=== PATIENT | female | born 1995 | race Caucasian/White ===

== ENCOUNTER 2018-01-22 08:30 | Outpatient (RCR) | payer OTHER | END 2018-03-14 15:07 | disposition home or self-care (01) | PROVIDERS: ATTEND Family Medicine | DX: G56.22 Lesion of ulnar nerve, left upper limb (principal); R20.2 Paresthesia of skin ==

== ENCOUNTER 2018-05-15 20:11 | Emergency (ER) | payer MEDICAID ==
[~2018-05-15] VITALS: Ht 160 cm; Wt 61.2 kg
[2018-05-15] MEDS ORDERED: NS IV 1000 ML 1,000 ML IV SCH (20:45)
[2018-05-15] MEDS ORDERED: ONDANSETRON 4 MG/2 ML (SDV) Z0FRAN IVP ONE (20:45)
[2018-05-15 20:47] LABS: BASOPHILS % (AUTO) 0 % (0-10); EOSINOPHILS # (AUTO) 0.1 10^3/uL (0.0-0.3); EOSINOPHILS % (AUTO) 0 % (0-10); HEMATOCRIT 44 % (35-52); LYMPHOCYTES # (AUTO) 3.3 X 10^3 (1.0-4.0); LYMPHOCYTES % (AUTO) 15 % (12-44); MEAN CORPUSCULAR HEMOGLOBIN 29 PG (25-34); MEAN CORPUSCULAR HGB CONC 34 G/DL (32-36); MEAN CORPUSCULAR VOLUME 86 FL (80-99); MEAN PLATELET VOLUME 11.8 FL (7.4-10.4); MONOCYTES # (AUTO) 1.2 X 10^3 (0.0-1.0); MONOCYTES % (AUTO) 5 % (0-12); NEUTROPHILS # (AUTO) 17.8 X 10^3 (1.8-7.8); NEUTROPHILS % (AUTO) 79 % (42-75); PLATELET COUNT 284 10^3/uL (130-400); RED BLOOD COUNT 5.12 10^6/uL (4.35-5.85); RED CELL DISTRIBUTION WIDTH 13.1 % (10.0-14.5); WHITE BLOOD COUNT 22.4 10^3/uL (4.3-11.0)
[2018-05-15 21:08] LABS: ALANINE AMINOTRANSFERASE 9 U/L (0-55); ALBUMIN 4.9 GM/DL (3.2-4.5); ALKALINE PHOSPHATASE 62 U/L (40-136); AMYLASE 53 U/L (25-125); BILIRUBIN,TOTAL 0.7 MG/DL (0.1-1.0); BUN/CREATININE RATIO 16; CALCIUM 10.2 MG/DL (8.5-10.1); CARBON DIOXIDE 25 MMOL/L (21-32); CHLORIDE 107 MMOL/L (98-107); CREATININE SERUM 0.91 MG/DL (0.60-1.30); GFR ESTIMATED > 60; GLUCOSE 106 MG/DL (70-105); LIPASE 10 U/L (8-78); POTASSIUM 4.1 MMOL/L (3.6-5.0); SODIUM 143 MMOL/L (135-145); TOTAL PROTEIN 8.1 GM/DL (6.4-8.2)
[2018-05-15 21:14] LABS: BAND NEUTROPHILS 1 %; BASOPHILS % (MANUAL) 0 %; EOSINOPHILS % (MANUAL) 1 %; LYMPHOCYTES % (MANUAL) 21 %; MONOCYTES % (MANUAL) 3 %; NEUTROPHILS % (MANUAL) 74 %; RBC MORPH NORMAL
[2018-05-15 21:22] LABS: CLARITY,URINE SLIGHTLY CLOUDY; COLOR,URINE AMBER; GLUCOSE, URINE (UA) NEGATIVE (NEGATIVE); KETONES,URINE 2+ (NEGATIVE); LEUKOCYTE ESTERASE ,URINE 1+ (NEGATIVE); NITRITE,URINE NEGATIVE (NEGATIVE); PH,URINE 5 (5-9); PROTEIN,URINE 2+ (NEGATIVE); UROBILINOGEN,URINE 1 MG/DL (NORMAL)
[2018-05-15 21:36] LABS: BILIRUBIN,URINE 1+ (NEGATIVE)
[2018-05-15 21:37] LABS: BACTERIA,URINE FEW /HPF; SQUAMOUS EPITHELIAL CELL,UR >50 /HPF
[2018-05-15] MEDS ORDERED: RX-ONDANSETRON 4 MG ODT (ZOFRAN) PPK #4 PO STA (22:43)
[2018-05-15] MEDS ORDERED: ONDA4TAB8 SL (22:43)
--- NOTE | 2018-05-15 22:43 | ED Abdominal Pain ---
General Chief Complaint: Abdominal/GI Problems Stated Complaint: VOMITING Nursing Triage Note: Pt c/o vomiting that began around 1400, diarrhea began about 30 mins prior to arrival at ed. Pt denies abdominal pain. Sepsis Screen: No Definite Risk Source of Information: Patient, Family Exam Limitations: No Limitations History of Present Illness Date Seen by Provider: May 15, 2018 Time Seen by Provider: 20:32 Initial Comments Patient is a 22-year-old female who presents to the emergency room with nausea and vomiting that started around 1400 today. She also reports that she's had diarrhea a few episodes this started 30 minutes prior to arrival to the emergency room. She reports abdominal cramping. Timing/Duration: 4-6 Hours Severity/Quality: Cramping Location: Generalized Abdomen Radiation: No Radiation Modifying Factors: Worsens With Defecating Associated Symptoms: Nausea/Vomiting Allergies and Home Medications Allergies Coded Allergies: No Known Drug Allergies (Unverified , 05/15/18) Home Medications Ondansetron 4 Mg Tab.rapdis, 4 MG SL Q4H PRN for NAUSEA/VOMITING-1ST LINE Prescribed by: HALEY TORRES on 05/15/18 8923 Patient Home Medication List Home Medication List Reviewed: Yes Review of Systems Constitutional: see HPI; No chills, No fever Gastrointestinal: Abdominal Pain, Diarrhea, Nausea, Vomiting All Other Systems Reviewed Negative Unless Noted: Yes Past Qwxosev-Lqwyqw-Ljmcxq Hx Past Med/Social Hx: Reviewed Nursing Past Med/Soc Hx Patient Social History Alcohol Use: Denies Use Recreational Drug Use: No 2nd Hand Smoke Exposure: No Recent Foreign Travel: No Contact w/Someone Who Travel: No Recent Infectious Disease Expo: No Recent Hopitalizations: No Physical Abuse: No Sexual Abuse: No Seasonal Allergies Seasonal Allergies: No Past Medical History Surgeries: Yes (vaginal reconstruction) Adenoidectomy, Appendectomy, Tonsillectomy Respiratory: No Cardiac: No Neurological: No Last Menstrual Period: Apr 18, 2018 Female Reproductive Disorders: Ovarian Cyst Gastrointestinal: No Musculoskeletal: No Endocrine: No HEENT: No Cancer: No Psychosocial: No Nursing Suicide Risk Score: 0 Blood Disorders: No Family Medical History Reviewed Nursing Family Hx Physical Exam Vital Signs Vital Signs - First Documented 05/15/18 20:32 Temp 96.9 Pulse 79 Resp 15 B/P (MAP) 94/63 (73) Pulse Ox 98 O2 Delivery Room Air Capillary Refill : Less Than 3 Seconds Height/Weight/BMI Height: 5'3.00" Weight: 135lbs. oz. 61.083160zw; BMI Method:Stated General Appearance: WD/WN, no apparent distress Respiratory: chest non-tender, lungs clear, normal breath sounds, no respiratory distress, no accessory muscle use Cardiovascular: regular rate, rhythm, no edema, no gallop, no JVD, no murmur Gastrointestinal: normal bowel sounds, non tender, soft, no organomegaly, no pulsatile mass Neurologic/Psychiatric: alert, normal mood/affect, oriented x 3 Skin: normal color, warm/dry Progress/Results/Core Measures Results/Orders Lab Results Laboratory Tests Test 05/15/18 20:36 05/15/18 21:17 Range/Units White Blood Count 22.4 H 4.3-11.0 10^3/uL Red Blood Count 5.12 4.35-5.85 10^6/uL Hemoglobin 15.0 11.5-16.0 G/DL Hematocrit 44 35-52 % Mean Corpuscular Volume 86 80-99 FL Mean Corpuscular Hemoglobin 29 25-34 PG Mean Corpuscular Hemoglobin Concent 34 32-36 G/DL Red Cell Distribution Width 13.1 10.0-14.5 % Platelet Count 284 130-400 10^3/uL Mean Platelet Volume 11.8 H 7.4-10.4 FL Neutrophils (%) (Auto) 79 H 42-75 % Lymphocytes (%) (Auto) 15 12-44 % Monocytes (%) (Auto) 5 0-12 % Eosinophils (%) (Auto) 0 0-10 % Basophils (%) (Auto) 0 0-10 % Neutrophils # (Auto) 17.8 H 1.8-7.8 X 10^3 Lymphocytes # (Auto) 3.3 1.0-4.0 X 10^3 Monocytes # (Auto) 1.2 H 0.0-1.0 X 10^3 Eosinophils # (Auto) 0.1 0.0-0.3 10^3/uL Basophils # (Auto) 0.0 0.0-0.1 10^3/uL Neutrophils % (Manual) 74 % Lymphocytes % (Manual) 21 % Monocytes % (Manual) 3 % Eosinophils % (Manual) 1 % Basophils % (Manual) 0 % Band Neutrophils 1 % Blood Morphology Comment NORMAL Sodium Level 143 135-145 MMOL/L Potassium Level 4.1 3.6-5.0 MMOL/L Chloride Level 107 98-107 MMOL/L Carbon Dioxide Level 25 21-32 MMOL/L Anion Gap 11 5-14 MMOL/L Blood Urea Nitrogen 15 7-18 MG/DL Creatinine 0.91 0.60-1.30 MG/DL Estimat Glomerular Filtration Rate > 60 BUN/Creatinine Ratio 16 Glucose Level 106 H 70-105 MG/DL Calcium Level 10.2 H 8.5-10.1 MG/DL Total Bilirubin 0.7 0.1-1.0 MG/DL Aspartate Amino Transf (AST/SGOT) 15 5-34 U/L Alanine Aminotransferase (ALT/SGPT) 9 0-55 U/L Alkaline Phosphatase 62 40-136 U/L Total Protein 8.1 6.4-8.2 GM/DL Albumin 4.9 H 3.2-4.5 GM/DL Amylase Level 53 25-125 U/L Lipase 10 8-78 U/L Serum Test, Qualitative NEGATIVE NEGATIVE Urine Color DEENA H Urine Clarity SLIGHTLY CLOUDY Urine pH 5 5-9 Urine Specific [place] 1.025 H 1.016-1.022 Urine Protein 2+ H NEGATIVE Urine Glucose (UA) NEGATIVE NEGATIVE Urine Ketones 2+ H NEGATIVE Urine Nitrite NEGATIVE NEGATIVE Urine Bilirubin 1+ H NEGATIVE Urine Urobilinogen 1 NORMAL MG/DL Urine Leukocyte Esterase 1+ H NEGATIVE Urine RBC (Auto) 2+ H NEGATIVE Urine RBC 5-10 H /HPF Urine WBC 2-5 /HPF Urine Squamous Epithelial Cells >50 H /HPF Urine Crystals NONE /LPF Urine Bacteria FEW H /HPF Urine Casts NONE /LPF Urine Mucus LARGE H /LPF Urine Culture Indicated NO Micro Results Microbiology 05/15/18 Stool Culture - Preliminary, Resulted No stool pathogens as yet isolated. ... My Orders Orders - HALEY TORRES Ondansetron Injection (Zofran Injectio (05/15/18 20:45) Comprehensive Metabolic Panel (05/15/18 20:41) Lipase (05/15/18 20:41) Amylase (05/15/18 20:41) Ua Culture If Indicated (05/15/18 20:41) Hcg,Qualitative Serum (05/15/18 20:41) Saline Lock/Iv-Start (05/15/18 20:41) Cbc With Automated Diff (05/15/18 20:41) Ns Iv 1000 Ml (Sodium Chloride 0.9%) (05/15/18 20:45) Manual Differential (05/15/18 20:36) Stool Culture (05/15/18 21:34) Ct Abdomen/Pelvis W (05/15/18 21:38) Rx-Ondansetron Po (Rx-Zofran Po) (05/15/18 22:43) Iv Push Insurance Producer Ed (05/15/18 ) Medications Given in ED Vital Signs/I&O 05/15/18 05/15/18 20:32 22:50 Temp 96.9 97.1 Pulse 79 85 Resp 15 18 B/P (MAP) 94/63 (73) 112/66 Pulse Ox 98 100 O2 Delivery Room Air Room Air Blood Pressure Mean: 73 Progress Progress Note : Progress Note I have seen and evaluated the patient. I informed her lab values and CT findings. She agrees with complains of discharge, close follow-up, and return precautions. Diagnostic Imaging Diagonstic Imaging: CT Plain Films/CT/US/NM/MRI: abdomen, pelvis Comments NAME: JENNI NICK [facility] REC#: [id number] PHYSICIAN: HALEY TORRES CC: HALEY TORRES; RICO TELLES MD Page 1 of 1 RADIOLOGY REPORT VIA [place], [place] CC: HALEY TORRES; RICO TELLES MD Page 1 of 1 RADIOLOGY REPORT NAME: JENNI NICK [facility] REC#: [id number] PT STATUS: DEP ER : 1995 PHYSICIAN: HALEY TORRES ADMIT DATE: 05/15/18/ER Signed Date of Exam: 05/15/18 CT ABDOMEN/PELVIS W PROCEDURE: CT abdomen and pelvis with contrast. TECHNIQUE: Multiple contiguous axial images were obtained through the abdomen and pelvis after administration of intravenous contrast. INDICATION: Nausea, emesis and diarrhea No focal hepatic or splenic abnormality is identified. Gallbladder is distended, however, there is no evidence of inflammation. No pancreatic, adrenal gland or renal abnormality is seen. There is fluid distention of small bowel, diffusely with questionable mild mural thickening. There is also mild pelvic free fluid. Cystic areas are seen within both adnexal regions. There is no organized fluid collection or site of bowel obstruction. IMPRESSION: Fluid distention of small bowel may be related to ileus or enteritis. Otherwise, no definite acute abnormality seen in the abdomen. There are probable bilateral ovarian cysts. This is associated with mild pelvic free fluid and clinical correlation is recommended. Dictated by: Dictated on workstation # [id number] Dict: 05/16/1858 Trans: 05/16/18800 Interpreted by: RICO TELLES MD Electronically signed by: RICO TELLES MD 05/16/18800 Departure Impression Primary Impression: Nausea and vomiting Additional Impression: Diarrhea Disposition: HOME, SELF-CARE Condition: Stable/Unchanged Departure-Patient Inst. Decision time for Depature: 22:41 Referrals: DAVID KOTHARI MD (PCP) Primary Care Physician Patient Instructions: Diarrhea and Traveler's Diarrhea, Child (DC), Nausea and Vomiting, Adult Add. Discharge Instructions: Take medication as directed. You may also use [id number] antidiarrheals as directed. Follow-up with Dr. Kothari within 1 week for recheck. Return back to the emergency room for any worsening symptoms or concerns as needed. All discharge instructions reviewed with patient and/or family. Voiced understanding. Scripts Ondansetron (Zofran Odt) 4 Mg Tab.rapdis 4 MG SL Q4H PRN for NAUSEA/VOMITING-1ST LINE, #14 TAB Prov: HALEY TORRES 05/15/18 HALEY TORRES May 15, 2018 22:43
[2018-05-15 22:50] VITALS: BP 112/66
--- NOTE | 2018-05-16 06:11 | Diagnostic Imaging Report ---
PROCEDURE: CT abdomen and pelvis with contrast. TECHNIQUE: Multiple contiguous axial images were obtained through the abdomen and pelvis after administration of intravenous contrast. INDICATION: Nausea, emesis and diarrhea No focal hepatic or splenic abnormality is identified. Gallbladder is distended, however, there is no evidence of inflammation. No pancreatic, adrenal gland or renal abnormality is seen. There is fluid distention of small bowel, diffusely with questionable mild mural thickening. There is also mild pelvic free fluid. Cystic areas are seen within both adnexal regions. There is no organized fluid collection or site of bowel obstruction. IMPRESSION: Fluid distention of small bowel may be related to ileus or enteritis. Otherwise, no definite acute abnormality seen in the abdomen. There are probable bilateral ovarian cysts. This is associated with mild pelvic free fluid and clinical correlation is recommended. Dictated by: Dictated on workstation # [id number]
== END 2018-05-15 22:56 | disposition home or self-care (01) ==
LOC: EDUNIT# 20:11 → ER 20:12
DX: R11.2 Nausea with vomiting, unspecified (principal); R19.7 Diarrhea, unspecified; Z90.89 Acquired absence of other organs; Z87.448 Personal history of other diseases of urinary system
CPT/HCPCS: 36415; 74177; 80053; 81000; 82150; 83690; 84703; 85007; 85027; 87045; 87046; 96374

== ENCOUNTER → 2019-05-14 | Outpatient (CLI) | payer BC, MEDICAID ==
[~2019-05-14] MED LIST: ONDA4TAB8 SL
--- NOTE | 2019-05-14 15:15 | Diagnostic Imaging Report ---
CLINICAL HISTORY: Chronic neck pain for 2 years. Left arm radiculopathy. COMPARISON: None TECHNIQUE: 3 views of the cervical spine. FINDINGS: No acute fracture or dislocation is seen in the cervical spine. The cervical spine is visualized to the C7-T1 level. Vertebral body heights are well-maintained. There is anatomic alignment of the cervical spine. No focal osseous lesions. No significant degenerative changes. Views of the odontoid demonstrate no fracture or or abnormality. The soft tissues of the neck are unremarkable. Included lungs are clear. IMPRESSION: 1. No acute fracture or dislocation in the cervical spine. No significant osseous degenerative changes. Dictated by: Dictated on workstation # [id number]
--- NOTE | 2019-05-14 15:16 | Diagnostic Imaging Report ---
CLINICAL HISTORY: Chronic low back pain. Bilateral lower extremity radiculopathy. COMPARISON: None TECHNIQUE: 3 views of the lumbar spine. FINDINGS: Bone mineralization is normal. 5 lumbar type vertebral bodies are visualized with the last well-formed disc space designated L5-S1. There is no acute fracture or dislocation of the lumbar spine. Vertebral body heights and disc spaces are well-maintained. Alignment is anatomic. Prevertebral soft tissues are unremarkable. IMPRESSION: No acute fracture or dislocation in the lumbar spine. No significant osseous degenerative changes. Dictated by: Dictated on workstation # [id number]
== END ==
LOC: RAD 09:42
PROVIDERS: ATTEND Pediatrics
DX: G89.29 Other chronic pain (principal); M54.2 Cervicalgia; M54.42 Lumbago with sciatica, left side; M54.10 Radiculopathy, site unspecified
CPT/HCPCS: 72040; 72100

== ENCOUNTER 2019-08-01 10:28 | Outpatient (RCR) | payer BC, MEDICAID | END 2019-08-01 14:34 | disposition home or self-care (01) | PROVIDERS: ATTEND Pediatrics | DX: M54.2 Cervicalgia (principal) ==

== ENCOUNTER 2019-11-08 10:12 | Emergency (ER) | payer BC, MEDICAID ==
[~2019-11-08] VITALS: Ht 162.5 cm; Wt 69.1 kg
[2019-11-08 10:33] LABS: BILIRUBIN,URINE NEGATIVE (NEGATIVE); CLARITY,URINE CLEAR; COLOR,URINE YELLOW; GLUCOSE, URINE (UA) NEGATIVE (NEGATIVE); KETONES,URINE NEGATIVE (NEGATIVE); LEUKOCYTE ESTERASE ,URINE NEGATIVE (NEGATIVE); NITRITE,URINE NEGATIVE (NEGATIVE); PH,URINE 6.5 (5-9); PROTEIN,URINE NEGATIVE (NEGATIVE)
[2019-11-08 10:41] LABS: BACTERIA,URINE NEGATIVE /HPF; SQUAMOUS EPITHELIAL CELL,UR 0-2 /HPF
[2019-11-08] MEDS ORDERED: NAPR-1071 PO (10:46)
[2019-11-08] MEDS ORDERED: METH-313 PO (10:46)
--- NOTE | 2019-11-08 10:48 | ED Back Pain ---
General Chief Complaint: Back Problems Stated Complaint: LOW BACK PAIN Nursing Triage Note: PT AMB TO RM 10 WITH COMPLAINT LOW BACK PAIN. STATES SHE WAS MOVING TREE LIMBS ON MONDAY AND STATES PAIN HAS BEEN INCREASING SINCE. Nursing Sepsis Screen: No Definite Risk Source of Information: Patient Exam Limitations: No Limitations History of Present Illness Date Seen by Provider: Nov 08, 2019 Time Seen by Provider: 10:42 Initial Comments Said some low back pain ongoing for quite some time but it's been mild. 2 days ago she was trying to pull a tree limb off of the fence and worsened her back pain. Pain radiates to the left buttocks. No loss of bowel or bladder control. N o loss of sensation of genitals. No fevers and no trauma. She did not fall. Location: Lumbar Spine, Paraspinous Muscles Timing/Duration: 4-5 Days Severity: Moderate Pain/Injury Location: Back Radiation: Buttocks Method of Injury: Unknown Associated Symptoms: No numbness in legs/feet, No tingling in legs/feet, No sensory/motor loss; lower back pain; No loss of bladder control, No loss of bowel control Allergies and Home Medications Allergies Coded Allergies: No Known Drug Allergies (Unverified , 05/15/18) Home Medications Ondansetron 4 Mg Tab.rapdis, 4 MG SL Q4H PRN for NAUSEA/VOMITING-1ST LINE Prescribed by: HALEY TORRES on 05/15/18 2416 Patient Home Medication List Home Medication List Reviewed: Yes Review of Systems Constitutional: see HPI EENTM: see HPI Respiratory: no symptoms reported Cardiovascular: no symptoms reported Genitourinary: no symptoms reported Musculoskeletal: see HPI, back pain Skin: no symptoms reported Psychiatric/Neurological: No Symptoms Reported Past Dbgyoom-Mhwehs-Cvtqyv Hx Patient Social History Alcohol Use: Denies Use Recreational Drug Use: No Smoking Status: Never a Smoker 2nd Hand Smoke Exposure: No Recent Foreign Travel: No Contact w/Someone Who Travel: No Recent Infectious Disease Expo: No Recent Hopitalizations: No Immunizations Up To Date Tetanus Booster (TDap): Unknown PED Vaccines UTD: Yes Seasonal Allergies Seasonal Allergies: No Past Medical History Surgeries: Yes (vaginal reconstruction) Adenoidectomy, Appendectomy, Tonsillectomy Respiratory: No Cardiac: No Neurological: No Female Reproductive Disorders: Ovarian Cyst Gastrointestinal: No Musculoskeletal: No Endocrine: No HEENT: No Cancer: No Psychosocial: No Blood Disorders: No Physical Exam Vital Signs Vital Signs - First Documented 11/08/19 10:16 Temp 37.0 Pulse 74 Resp 16 B/P (MAP) 104/74 (84) Pulse Ox 100 O2 Delivery Room Air Capillary Refill : Less Than 3 Seconds Height, Weight, BMI Height: 5'3.00" Weight: 135lbs. oz. 61.033703zn; 26.00 BMI Method:Stated General Appearance: No Apparent Distress, WD/WN Neck: Full Range of Motion, Normal Inspection Respiratory: Lungs Clear, Normal Breath Sounds, No Accessory Muscle Use, No Respiratory Distress Back: Normal Inspection, Decreased Range of Motion; No Muscle Spasm, No Vertebral Tenderness Neurologic/Psychiatric: Alert, Oriented x3 Skin: Normal Color, Warm/Dry Progress/Results/Core Measures Results/Orders Lab Results Laboratory Tests Test 11/08/19 10:23 Range/Units Urine Color YELLOW Urine Clarity CLEAR Urine pH 6.5 5-9 Urine Specific [place] >=1.030 1.016-1.022 Urine Protein NEGATIVE NEGATIVE Urine Glucose (UA) NEGATIVE NEGATIVE Urine Ketones NEGATIVE NEGATIVE Urine Nitrite NEGATIVE NEGATIVE Urine Bilirubin NEGATIVE NEGATIVE Urine Urobilinogen 0.2 < = 1.0 MG/DL Urine Leukocyte Esterase NEGATIVE NEGATIVE Urine RBC (Auto) TRACE-I NEGATIVE Urine RBC NONE /HPF Urine WBC NONE /HPF Urine Squamous Epithelial Cells 0-2 /HPF Urine Crystals NONE /LPF Urine Bacteria NEGATIVE /HPF Urine Casts NONE /LPF Urine Mucus MODERATE H /LPF Urine Culture Indicated NO Vital Signs/I&O 11/08/19 10:16 Temp 37.0 Pulse 74 Resp 16 B/P (MAP) 104/74 (84) Pulse Ox 100 O2 Delivery Room Air Blood Pressure Mean: 84 Departure Impression Primary Impression: Low back pain Qualified Codes: M54.5 - Low back pain Disposition: 01 HOME, SELF-CARE Condition: Stable Departure-Patient Inst. Decision time for Depature: 10:43 Referrals: ANA ZAPATA MD (PCP/Family) Primary Care Physician Patient Instructions: Low Back Pain (DC) Add. Discharge Instructions: 2. Follow-up with your doctor next week 3. Medication as directed. All discharge instructions reviewed with patient and/or family. Voiced unders tanding. Scripts Naproxen (Naprosyn) 500 Mg Tablet 500 MG PO BID PRN for PAIN-SEVERE (8-10), #30 TAB 0 Refills Prov: CATE SO APRN 11/08/19 Methocarbamol (Robaxin-750) 750 Mg Tablet 750 MG PO Q4H PRN for PAIN-MODERATE (5-7), #14 TAB Prov: CATE SO APRN 11/08/19 Work/School Note: Work Release Form Date Seen in the Emergency Department: Nov 08, 2019 Return to Work: Nov 09, 2019 CATE SO APRN Nov 08, 2019 10:48
[2019-11-08] MEDS ORDERED: KETOROLAC 60 MG/2 ML VIAL IM ONE (11:00)
[2019-11-08] MEDS ORDERED: ORPHENADRINE 60 MG/2 ML (NORFLEX) AMP IM ONE (11:00)
[2019-11-08 11:20] VITALS: BP 104/74
== END 2019-11-08 11:20 | disposition home or self-care (01) ==
LOC: EDUNIT# 10:12 → ER 10:13
DX: M54.5 Low back pain (principal); Z90.49 Acquired absence of other specified parts of digestive tract; Z90.89 Acquired absence of other organs
CPT/HCPCS: 81000; 84703; 99284

== ENCOUNTER → 2021-02-22 | Outpatient (CLI) | payer BC, MEDICAID, OTHER ==
[~2021-02-22] MED LIST changes: +METH-313 PO; +NAPR-1071 PO
--- NOTE | 2021-02-22 09:49 | Diagnostic Imaging Report ---
INDICATION: Bilateral breast tenderness and lumps. Sonographic interrogation of the areas of pain and lumps was performed bilaterally. This corresponds to the outer portions of both breasts. No sonographic abnormality is identified. No solid or cystic breast mass is detected. IMPRESSION: BI-RADS Category 1 No sonographic abnormality is identified. Continued close clinical and self breast exams recommended to confirm stability of the areas of palpable abnormality. ACR BI-RADS Category 1: Negative. Result letter will be mailed to the patient. Note: At least 10% of breast cancer is not imaged by mammography. Dictated by: Dictated on workstation # [id number]
== END ==
LOC: RAD 08:55
PROVIDERS: ATTEND Nurse Practitioner Women's Health
DX: N63.20 Unspecified lump in the left breast, unspecified quadrant (principal); N63.10 Unspecified lump in the right breast, unspecified quadrant
CPT/HCPCS: 76642